=== PATIENT | male | born 1935 | race Caucasian/White ===

== ENCOUNTER 2017-08-12 13:15 | Outpatient (REF) | payer MEDICARE, OTHER, SELFPAY ==
--- NOTE | 2017-08-12 11:48 | SKI_PTH ---
PATIENT: MAKENNA GARZON LOC: [facility] U#:[id number] AGE/SX: 81/M ROOM: RE08/12/[address]: Dru Hamilton DO : 1935 BED: DIS: 08/12/2017 SPEC #: [id number] RECD: 08/12/17 18:07 STATUS: MARY RESuresh #: [id number] CALE: 08/12/17 11:[address]: Dru Hamilton DEPT: Surgical Specimen RECD BY: Anne Xiong ENTERED: 08/12/17 18:08 SP TYPE: LAURI OTHR DR: Denise Bailey Tissues: 1 - SKIN BIOPSY(SHAVE/PUNCH) 2 - SKIN BIOPSY(SHAVE/PUNCH) 3 - SKIN BIOPSY(SHAVE/PUNCH) 4 - SKIN BIOPSY(SHAVE/PUNCH) Procedures: SKIN LEVEL 4 Comments: [id number]
== END 2017-08-12 13:35 ==
LOC: LBN 13:15
PROVIDERS: Visit Provider Otolaryngology Otolaryngology/Facial Plastic Surgery
DX: D49.2 Neoplasm of unspecified behavior of bone, soft tissue, and skin (principal); I78.1 Nevus, non-neoplastic; L57.0 Actinic keratosis
CPT/HCPCS: 88305